=== PATIENT | female | born 1990 | race Caucasian/White ===

== ENCOUNTER 2019-12-22 17:41 | Emergency (ER) | payer OTHER, SELFPAY ==
[2019-12-22 19:04] LABS: Basophils % 0.4 % (0-1.3); Hematocrit 37.9 % (36.0-45.0); Lymphocytes % 24.2 % (15.3-44.8); RBC Red Blood Cell Count 4.33 M/uL (3.86-4.86)
[2019-12-22 19:13] LABS: BUN Blood Urea Nitrogen 11 mg/dL (7-18); Bicarbonate 25 mmol/L (21-32); Glucose Level 88 mg/dL (74-106); HCG, Quantitative 4361 mIU/mL (1-3); Potassium 3.3 mmol/L (3.5-5.1); Sodium Level 139 mmol/L (136-145)
--- NOTE | 2019-12-22 19:25 | RAD REPORT ---
EXAM DESCRIPTION: US - Transvaginal OB - 12/22/2019 7:11 pm CLINICAL HISTORY: VAGINAL BLEEDING COMPARISON: No comparisons FINDINGS: A single gestational sac is seen within the uterus. The shape of the sac is within normal limits for gestational age. Mean sac diameter is 5 mm corresponding with 5 weeks 2 day gestational ag e. No yolk sac or embryo yet identified. The placenta is not yet developed due to early gestational age. The maternal adnexa and right ovary are within normal limits. Normal Doppler blood flow was demonstra brdaley to the right ovary. Left ovary was obscured by bowel gas. IMPRESSION: Findings are compatible with quite early IUP. Consider followup ultrasound in 10-12 days .
[2019-12-22 19:37] LABS: Urine Blood NEGATIVE (NEG); Urine Glucose NEGATIVE (NEG); Urine Protein NEGATIVE (NEG); Urine Specific Gravity 1.015 (1.005-1.030)
[2019-12-22 19:37] LABS: Urine Bacteria <20 /HPF (<20); Urine Culture Reflex Order NOT NEEDED; Urine Mucus 1+ /HPF (NONE SEEN); Urine RBC <5 /HPF (NONE SEEN)
--- NOTE | 2019-12-22 19:59 | EDPHYS ---
Physician Documentation [facility] Name: Carla Barth Age: 29 yrs Sex: Female : 1990 Arrival Date: 12/22/2019 Time: 17:44 Bed 28 Private MD: JACQUELYN Physician Renato Hurd HPI: 12/22 19:16 This 29 yrs old Female presents to ER via Ambulatory with complaints of pm1 Vaginal Bleeding, + Preg <12wks. 19:16 The patient presents to the emergency department with vaginal bleeding, that is light. pm1 The estimated gestational age is 5 weeks. course: care: none, Ultrasound: the patient has not had an ultrasound, Risk/complications: no obvious risks or complications are appreciated. Previous pregnancies: in previous pregnancies patient has had miscarriage. Associated signs and symptoms: Pertinent positives: back pain but reports possibly from playing golf recently, Pertinent negatives: dysuria, fever. The patient has not experienced similar symptoms in the past. The patient has not recently seen a physician. 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 - Coronavirus screen:: The patient has NOT traveled to [place] in the past 14 days. The patient has NOT had contact with known/suspected case of Coronavirus? Proceed with normal triage procedures. - Social history:: Smoking status: Patient denies any tobacco usage or history of. - Ebola Screening: : No symptoms or risks identified at this time. ROS: 19:16 Constitutional: Negative for fever, chills, and weight loss, Cardiovascular: Negative pm1 for chest pain, palpitations, and edema, Respiratory: Negative for shortness of breath, cough, wheezing, and pleuritic chest pain, Abdomen/GI: Negative for abdominal pain, nausea, vomiting, diarrhea, and constipation. 19:16 MS/Extremity: Negative for injury and deformity, Skin: Negative for injury, rash, and discoloration, Neuro: Negative for headache, weakness, numbness, tingling, and seizure. 19:16 Back: Positive for of the left low back and right low back, pain. 19:16 : Positive for vaginal bleeding, Negative for urinary symptoms. Exam: 19:16 Constitutional: This is a well developed, well nourished patient who is awake, alert, pm1 and in no acute distress. Head/Face: Normocephalic, atraumatic. Neck: Trachea midline, no thyromegaly or masses palpated, and no cervical lymphadenopathy. Supple, full range of motion without nuchal rigidity, or vertebral point tenderness. No Meningismus. Chest/axilla: Normal chest wall appearance and motion. Nontender with no deformity. No lesions are appreciated. Cardiovascular: Regular rate and rhythm with a normal S1 and S2. No gallops, murmurs, or rubs. Normal PMI, no JVD. No pulse deficits. Respiratory: Lungs have equal breath sounds bilaterally, clear to auscultation and percussion. No rales, rhonchi or wheezes noted. No increased work of breathing, no retractions or nasal flaring. Abdomen/GI: Soft, non-tender, with normal bowel sounds. No distension or tympany. No guarding or rebound. No evidence of tenderness throughout. Back: No spinal tenderness. No costovertebral tenderness. Full range of motion. Skin: Warm, dry with normal turgor. Normal color with no rashes, no lesions, and no evidence of cellulitis. MS/ Extremity: Pulses equal, no cyanosis. Neurovascular intact. Full, normal range of motion. 19:16 Neuro: Orientation: is normal, Motor: is normal, moves all fours, Sensation: is normal, no obvious gross deficits, Gait: is steady, at a normal pace, without difficulty. Vital Signs: 17:50 BP 129 / 82; Pulse 107; Resp 16; Temp 97.8; Pulse Ox 100% on R/A; Weight 57.61 kg; hb Height 5 ft. 3 in. (160.02 cm); Pain 3/10; 19:28 BP 117 / 60; Pulse 93; Resp 16 S; Pulse Ox 100% on R/A; ca1 17:50 Body Mass Index 22.50 (57.61 kg, 160.02 cm) hb MDM: 17:53 Patient medically screened. pm1 19:58 Data reviewed: vital signs. Data interpreted: Pulse oximetry: on room air is 100 %. pm1 Interpretation: normal. Counseling: I had a detailed discussion with the patient and/or guardian regarding: the historical points, exam findings, and any diagnostic results supporting the discharge/admit diagnosis, lab results, radiology results, the need for outpatient follow up, to return to the emergency department if symptoms worsen or persist or if there are any questions or concerns that arise at home. 12/22 17:54 Order name: Quantitative Hcg pm1 12/22 17:54 Order name: Abo/rh Typing pm1 12/22 17:54 Order name: Basic Metabolic Panel pm1 12/22 17:54 Order name: CBC with Diff pm1 12/22 19:07 Order name: CBC with Automated Diff; Complete Time: 19:08 EDMS 12/22 19:14 Order name: Basic Metabolic Panel; Complete Time: 19:15 EDMS 12/22 17:54 Order name: Urine Test (obtain specimen); Complete Time: 19:00 pm1 12/22 17:54 Order name: IV Saline Lock; Complete Time: 19:00 pm1 12/22 17:54 Order name: US Transvaginal Ob pm1 12/22 19:15 Order name: HCG, Quantitative; Complete Time: 19:15 EDMS 12/22 19:15 Order name: Urine Microscopic Only 1 12/22 19:27 Order name: Urine Dipstick--Ancillary (enter results) tx 12/22 19:43 Order name: Urine Microscopic Only; Complete Time: 19:53 EDOK 12/22 19:43 Order name: Urine Dipstick-Ancillary; Complete Time: 19:53 EDOK 12/22 17:54 Order name: Labs collected and sent; Complete Time: 19:00 pm1 12/22 17:54 Order name: NPO; Complete Time: 19:00 pm1 12/22 17:54 Order name: Urine Dipstick-Ancillary (obtain specimen); Complete Time: 19:27 pm1 Administered Medications: No medications were administered Point of Care Testing: Urine : 17:48 hCG Reading: Negative; Control Reading: Positive; ls4 Disposition: 12/22/19 19:59 Discharged to Home. Impression: Threatened . - Condition is Stable. - Discharge Instructions: Threatened Miscarriage, Pelvic Rest. - Medication Reconciliation Form, Thank You Letter, Antibiotic Education, Prescription Opioid Use form. - Follow up: Emergency Department; When: As needed; Reason: Worsening of condition. Follow up: Private Physician; When: 2 - 3 days; Reason: Recheck today's complaints, Continuance of care, Re-evaluation by your physician. - Problem is new. - Symptoms have improved. Addendum: 12/24/2019 08:53 Co-signature as Attending Physician, Renato Hurd MD I agree with the assessment and c boyd plan of care. Signatures: Dispatcher [employer] EDOK Renato Hurd MD MD cha Marinas, Patrick, MINE MOTOR OPERATOR MINE MOTOR OPERATOR pm1 Mera Greenwood RN RN Tricia Nixon RN RN ca1 Corrections: (The following items were deleted from the chart) 12/22 20:09 19:59 12/22/2019 19:59 Discharged to Home. Impression: Threatened . Condition ca1 is Stable. Forms are Medication Reconciliation Form, Thank You Letter, Antibiotic Education, Prescription Opioid Use. Follow up: Emergency Department; When: As needed; Reason: Worsening of condition. Follow up: Private Physician; When: 2 - 3 days; Reason: Recheck today's complaints, Continuance of care, Re-evaluation by your physician. Problem is new. Symptoms have improved. pm1
--- NOTE | 2019-12-22 19:59 | ER ---
Nurse's Notes [facility] Name: Carla Barth Age: 29 yrs Sex: Female : 1990 Arrival Date: 12/22/2019 Time: 17:44 Bed 28 Private MD: Diagnosis: Threatened Presentation: 12/22 17:48 Presenting complaint: Light vaginal bleeding and abdominal cramping that started at hb noon today. Pt reports she is approx 4-5 weeks . Transition of care: patient was not received from another setting of care. Onset of symptoms was December 22, 2019. Risk Assessment: Do you want to hurt yourself or someone else? Patient reports no desire to harm self or others. Care prior to arrival: None. 17:48 Method Of Arrival: Ambulatory hb 17:48 Acuity: MARISSA 3 hb 17:48 Initial Sepsis Screen: Does the patient meet any 2 criteria? No. Patient's initial ls4 sepsis screen is negative. Does the patient have a suspected source of infection? No. Patient's initial sepsis screen is negative. Triage Assessment: 18:00 General: Appears in no apparent distress. comfortable, Behavior is calm, cooperative. ls4 Pain: Denies pain. : Urine is clear, Reports vaginal bleeding that is spotty. 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 - Coronavirus screen:: The patient has NOT traveled to [place] in the past 14 days. The patient has NOT had contact with known/suspected case of Coronavirus? Proceed with normal triage procedures. - Social history:: Smoking status: Patient denies any tobacco usage or history of. - Ebola Screening: : No symptoms or risks identified at this time. Screenin:04 Abuse screen: Denies threats or abuse. Denies injuries from another. Nutritional ls4 screening: No deficits noted. Tuberculosis screening: No symptoms or risk factors identified. Fall Risk None identified. Assessment: 18:00 Obstetrical Assessment: General assessment: awake and alert, skin warm and dry, ls4 respirations even and unlabored, Rupture of membranes noted. 19:06 Reassessment: Patient appears in no apparent distress at this time. Patient and/or ls4 family updated on plan of care and expected duration. Pain level reassessed. Patient is alert, oriented x 3, equal unlabored respirations, skin warm/dry/pink. 20:08 Reassessment: Patient appears in no apparent distress at this time. Patient is alert, ca1 oriented x 3, equal unlabored respirations, skin warm/dry/pink. Vital Signs: 17:50 BP 129 / 82; Pulse 107; Resp 16; Temp 97.8; Pulse Ox 100% on R/A; Weight 57.61 kg; hb Height 5 ft. 3 in. (160.02 cm); Pain 3/10; 19:28 BP 117 / 60; Pulse 93; Resp 16 S; Pulse Ox 100% on R/A; ca1 17:50 Body Mass Index 22.50 (57.61 kg, 160.02 cm) hb ED Course: 17:44 Patient arrived in ED. ag5 17:49 Triage completed. hb 17:50 Arm band placed on. hb 17:53 Vivek Oliveira NP is PHCP. pm1 17:53 Renato Hurd MD is Attending Physician. pm1 18:04 Amber Saldaña, ANNIA is Primary Nurse. ls4 18:04 Patient has correct armband on for positive identification. Bed in low position. Call ls4 light in reach. Side rails up X 1. 18:04 No provider procedures requiring assistance completed. ls4 19:00 Quantitative Hcg Sent. ls4 19:00 Abo/rh Typing Sent. ls4 19:00 CBC with Diff Sent. ls4 19:01 Basic Metabolic Panel Sent. ls4 19:27 Urine collected: clean catch specimen, clear, Amount Voided: 30mL. ca1 20:09 IV discontinued, intact, bleeding controlled, No redness/swelling at site. Pressure ca1 dressing applied. Administered Medications: No medications were administered Point of Care Testing: Urine : 17:48 hCG Reading: Negative; Control Reading: Positive; ls4 Outcome: 19:59 Discharge ordered by . pm1 20:09 Discharged to home ambulatory, with significant other. ca1 20:09 Condition: stable 20:09 Discharge instructions given to patient, Instructed on discharge instructions, follow up and referral plans. Demonstrated understanding of instructions, follow-up care. 20:09 Patient left the ED. ca1 Signatures: Vivek Oliveira, SEAFOOD TEAM MEMBER SEAFOOD TEAM MEMBER pm1 Mera Greenwood RN RN hb Stewart, Lisa, RN RN ls4 Tricia Nixon RN RN ca1 Alexander Coe ag5
[2019-12-22 22:09] VITALS: TEMP 97.8; O2SAT 100
[2019-12-22 22:10] VITALS: BP 117/60
== END 2019-12-22 20:09 | disposition home or self-care (01) ==
LOC: ER 17:41
DX: O20.0 Threatened abortion (principal); Z3A.01 Less than 8 weeks gestation of pregnancy; Z88.2 Allergy status to sulfonamides
CPT/HCPCS: 36415; 76817; 80048; 81003; 81015; 84702; 85025; 86900; 86901; 99283